=== PATIENT | male | born 1980 | race Caucasian/White ===

== ENCOUNTER 2022-05-27 11:28 | Emergency (ER) | payer OTHER, MEDICAID, SELFPAY ==
--- NOTE | ~2022-05-27 | CT_ITS ---
EXAMINATION: CT HEAD WITHOUT CONTRAST CLINICAL INFORMATION: Trauma. Headache. Large weight fell on him. COMPARISON: None TECHNIQUE: Contiguous axial imaging was performed from the skull base to vertex without intravenous administration of contrast. This CT examination was performed using dose optimization techniques as appropriate, variously including the following: *Automated exposure control *Adjustment of mA and/or kV according to patient size (this includes techniques or standardized protocols for targeted exams where dose is matched to indication/reason for exam; i.e. extremities or head) *Use of iterative reconstruction technique DLP: 7-8 mGy-cm FINDINGS: There is no evidence of an extra-axial collection. There is no evidence of intra-axial or extra-axial hemorrhage. The ventricles and extra-axial CSF spaces are appropriate. Neal-white matter differentiation is normal. No mass, mass effect or infarct is seen. No skull fracture is seen. There are bilateral nasal bone fractures. Visualized paranasal sinuses, mastoid air cells and middle ears are clear. CT/CT head/brain wo IV con IMPRESSION: No acute intracranial findings. Bilateral nasal bone fractures.
--- NOTE | ~2022-05-27 | CT_ITS ---
EXAMINATION: CT CHEST WITHOUT CONTRAST CLINICAL INFORMATION: Trauma. Large weight fell on him COMPARISON: None TECHNIQUE: Multidetector volumetric CT imaging of the chest was done. Axial MIP volume rendering provided. Sagittal and coronal reformatted images were obtained. This CT examination was performed using dose optimization techniques as appropriate, variously including the following: *Automated exposure control *Adjustment of mA and/or kV according to patient size (this includes techniques or standardized protocols for targeted exams where dose is matched to indication/reason for exam; i.e. extremities or head) *Use of iterative reconstruction technique DLP: 396 mGy-cm FINDINGS: MOTHER BABY RN: Unremarkable LUNGS: The lungs are clear with no evidence of inflammation or nodules. MEDIASTINUM: The mediastinum is normal. CORONARY ARTERY CALCIFICATION: None visualized on this study. PLEURA: There is no pleural effusion. No pleural mass or thickening. AXILLA: No lymphadenopathy. UPPER ABDOMEN: Unremarkable. OSSEOUS STRUCTURES: There are degenerative changes of the spine. No fracture or dislocation. CT/CT chest wo IV con IMPRESSION: Unremarkable examination. Fleischner guidelines were followed.
--- NOTE | ~2022-05-27 | CT_ITS ---
EXAMINATION: CT ABDOMEN AND PELVIS WITHOUT CONTRAST CLINICAL INFORMATION: Direct trauma to the abdomen. COMPARISON: None TECHNIQUE: Multidetector volumetric imaging was performed from the superior aspect of the liver through the pubic symphysis. Sagittal and coronal reformatted images were obtained on the technologist's workstation. This CT examination was performed using dose optimization techniques as appropriate, variously including the following: *Automated exposure control *Adjustment of mA and/or kV according to patient size (this includes techniques or standardized protocols for targeted exams where dose is matched to indication/reason for exam; i.e. extremities or head) *Use of iterative reconstruction technique DLP: 742 mGy-cm FINDINGS: LUNG BASES: The visualized lung bases are unremarkable. LIVER, GALLBLADDER, AND BILIARY TREE: The liver is normal in size, shape, and attenuation. No focal hepatic lesion or biliary ductal dilatation is present. The gallbladder is unremarkable with no evidence of radiopaque gallstones, gallbladder wall thickening, or obvious pericholecystic inflammatory changes. PANCREAS: Unremarkable. SPLEEN: Unremarkable. ADRENAL GLANDS: Unremarkable. KIDNEYS AND URETERS: The kidneys are normal in size, shape, and attenuation. No hydronephrosis, hydroureter, or calculi seen. No perinephric stranding. BLADDER: Unremarkable. GASTROINTESTINAL TRACT: The small and large bowel are unremarkable. The appendix is unremarkable. ABDOMINAL WALL: No significant hernia is appreciated. LYMPH NODES: Normal. VASCULAR: Minor atherosclerotic change in the aorta. No aneurysm. No periaortic collection. PELVIC VISCERA: Seminal vesicles and prostate normal. OSSEOUS STRUCTURES: Minor degenerative change in the lower thoracic spine. There is a moderate disc protrusion noted at L5-S1. CT/CT abdomen pelvis wo IV con IMPRESSION: No acute findings. Fleischner guidelines were followed.
--- NOTE | ~2022-05-27 | CT_ITS ---
EXAMINATION: CT CERVICAL SPINE WITHOUT CONTRAST CLINICAL INFORMATION: Pain after direct trauma COMPARISON: None TECHNIQUE: Axial helical scans with sagittal and coronal reformats obtained. This CT examination was performed using dose optimization techniques as appropriate, variously including the following: *Automated exposure control *Adjustment of mA and/or kV according to patient size (this includes techniques or standardized protocols for targeted exams where dose is matched to indication/reason for exam; i.e. extremities or head) *Use of iterative reconstruction technique DLP: 379 mGy-cm FINDINGS: No fracture or destructive process or alignment abnormality. There appears to be disc protrusions, at C5-C6 and C6-C7 without significant encroachment on the spinal canal. Prevertebral soft tissues normal. CT/CT cervical spine wo IV con IMPRESSION: No acute findings.
[2022-05-27 11:32] VITALS: BP 136/84; PULSE 72; RESP 18; TEMP 36; O2SAT 98; BMI 29.5
[2022-05-27 11:54] LABS: MANUAL DIFF FLAG NO
[2022-05-27 11:56] LABS: Basophils Percent Auto 0.7 % (0-2); Eosinophils Absolute Auto 0.3 X10*3/uL (0.0-0.4); Eosinophils Percent Auto 4.6 % (0-4); Hematocrit 49.5 % (42.0-52.0); Hemoglobin 17.3 g/dl (14.0-18.0); Imm Gran Abs Auto 0.01 X10*3/uL (0.00-0.03); Imm Gran Pct Auto 0.2 % (0.0-0.4); Lymphocytes Absolute Auto 1.7 X10*3/uL (1.2-4.9); Lymphocytes Percent Auto 27.2 % (20-40); Mean Corpuscular HGB Conc 34.9 g/dl (31.0-36.0); Mean Corpuscular Hemoglobin 31.2 pg (27.0-33.0); Mean Corpuscular Volume 89.4 fL (80.0-98.0); Mean Platelet Volume 10.5 fL (9.4-12.4); Monocytes Absolute Auto 0.7 X10*3/uL (0.1-1.2); Monocytes Percent Auto 11.1 % (2-11); Neutrophils Absolute Auto 3.4 x10*3/uL (2.0-8.3); Neutrophils Percent Auto 56.2 % (45-73); Platelet Count 254 X10*3/uL (160-400); Red Blood Count 5.54 X10*6/uL (4.60-5.80); Red Cell Distribution Width 12.2 % (11.0-16.0); White Blood Count 6.1 X10*3/uL (4.8-10.8)
[2022-05-27 12:10] LABS: Alanine Aminotransferase 40 U/L (0-40); Albumin Level 4.9 g/dL (3.5-5.0); Alkaline Phosphatase 92 U/L (39-117); Anion Gap 15 (12-20); Aspartate Amino Transferase 26 U/L (5-37); Bilirubin Total 1.5 mg/dL (0.0-1.0); Blood Urea Nitrogen 12 mg/dL (9-16); Calcium 9.8 mg/dL (8.4-10.2); Carbon Dioxide 25 mmol/L (22-29); Chloride 102 mmol/L (96-108); Creatinine Clr Calc Pharmacy 113.8; Estimated Glomerular Filt Rate > 60; Glucose Random 117 mg/dL (60-115); Magnesium 1.8 mg/dL (1.6-2.6); Potassium 4.8 mmol/L (3.3-5.1); Sodium 137 mmol/L (135-145); Total Protein 7.7 g/dL (6.5-8.0)
--- NOTE | 2022-05-27 12:12 | PC.NURSE ---
positive pedal pulses and radial pulses.
[2022-05-27 12:14] VITALS: BP 127/95; PULSE 58; RESP 16; O2SAT 100
--- NOTE | 2022-05-27 12:18 | ED.GENADULT ---
HPI - General Adult General Chief complaint: Trauma Stated complaint: 2400 lbs fell on back at work Time Seen by Provider: 05/27/22 11:39 Source: patient Mode of arrival: ambulatory Limitations: no limitations History of Present Illness HPI narrative: 42 yold male presents to the ED for 2400lb of paper fell on him at work. patient did not have hard helmet on. patient states he was working under a large bag of paper and it opened and fell on his back. Patient denies any loss of consciousness. Patient states main complaint is upper back and neck pain. Related Data Previous Rx's Medication Instructions Recorded amoxicillin 875 mg-potassium 1 tab PO Q12H 10 days #20 tabs 05/27/22 clavulanate 125 mg tablet naproxen 500 mg tablet 500 mg PO BID PRN pain 10 days #20 05/27/22 tabs oxycodone 5 mg capsule 5 mg PO TID PRN pain 3 days #9 caps 05/27/22 Allergies Allergy/AdvReac Type Severity Reaction Status Date / Time No Known Allergies Allergy Verified 05/27/22 11:32 Review of Systems Review of Systems: neck and upper back pain Yes all other systems are reviewed and are negative [facility] Social History Social History Alcohol intake: never Patient Tobacco Use Status: Current everyday Tobacco user Use of substances other than those prescribed or required for medical reasons: No Advance Directives: Yes Advance Directives Information Provided: No Advance Directives on File: No Physical Exam ED Vital Signs: Vital Signs - 24 hr 05/27/22 11:32 05/27/22 12:14 05/27/22 14:03 Temperature 96.8 F Pulse Rate 72 58 62 Respiratory Rate 18 16 14 Blood Pressure 136/84 127/95 H 133/88 Pulse Oximetry 98 100 99 Oxygen Delivery Method Room Air Room Air Room Air BMI result Body Mass Index 29.5 Const General: cooperative, healthy appearing, comfortable, no acute distress, well developed, alert, awake and Physically active Orientation/consciousness: patient oriented x3 HENMT Head: Yes normal to inspection, Yes No palpable skull fracture present, Yes normocephalic, Yes atraumatic and No abrasion Eyes General: appearance normal, both eyes and all related structures Neck Neck: Yes normal visual inspection, Yes full ROM, Yes no lymphadenopathy, Yes no meningeal signs, Yes trachea midline, Yes supple, No anterior neck swelling and Yes tender (cervical spine tenderness) Chest Chest palpation & inspection: normal inspection of the chest and normal palpation of entire chest wall Resp Effort & Inspection: normal respiratory effort and able to speak in complete sentences Auscultation: clear to auscultation bilaterally Cardio Jugular venous distension: no JVD Heart sounds: S1 normal heart sound present and S2 normal heart sound present GI Inspection: Yes normal to inspection and No abdominal wall ecchymosis Palpation (GI): Soft to palpation, not firm, nontender, no guarding and not rigid General: No CVA tenderness and Yes no CVA tenderness Back/Spine/Pelvis Back: no CVA tenderness, No CVA tenderness and back tenderness (upper thoracic) Skin General skin exam: no rashes or lesions noted and elasticity normal Neuro General: patient oriented x3, gait normal, no meningeal signs and CN's II-XI intact bilaterally Cranial nerves: Yes CN's II-XII intact bilaterally Extrem General: Yes normal to inspection and Yes full ROM Psych Appearance: grossly normal, well kempt and not disheveled Course Course Course Narrative: Labs ordered. CT scan imaging was ordered by belinda Tamayo. Patient given morphine for pain. Reevaluation(s) Reevaluation #1: Images came back normal except bilateral nasal fracture. Negative for nasal septal hematoma. Patient will be discharged with antibiotics. Patient will follow-up with nasal specialist. Patient also to follow-up with worker's comp. Time: 15:08 Medical Decision Making [facility] Narrative Medical decision making narrative: bilateral nasal fractures Lab Data Result diagrams: 05/27/22 11:48 05/27/22 11:48 Labs: Lab Results 05/27/22 05/27/22 Range/Units 11:48 11:48 WBC 6.1 (4.8-10.8) X10*3/uL RBC 5.54 (4.60-5.80) X10*6/uL Hgb 17.3 (14.0-18.0) g/dl Hct 49.5 (42.0-52.0) % MCV 89.4 (80.0-98.0) fL MCH 31.2 (27.0-33.0) pg MCHC 34.9 (31.0-36.0) g/dl RDW 12.2 (11.0-16.0) % Plt Count 254 (160-400) X10*3/uL MPV 10.5 (9.4-12.4) fL Immature Gran % (Auto) 0.2 (0.0-0.4) % Neut % (Auto) 56.2 (45-73) % Lymph % (Auto) 27.2 (20-40) % [place] % (Auto) 11.1 H (2-11) % Eos % (Auto) 4.6 H (0-4) % Baso % (Auto) 0.7 (0-2) % Lymph # (Auto) 1.7 (1.2-4.9) X10*3/uL [place] # (Auto) 0.7 (0.1-1.2) X10*3/uL Eos # (Auto) 0.3 (0.0-0.4) X10*3/uL Baso # (Auto) 0.0 (0.0-0.2) X10*3/uL Abs Immat Gran (auto) 0.01 (0.00-0.03) X10*3/uL Absolute Neuts (auto) 3.4 (2.0-8.3) x10*3/uL Absolute Nucleated RBC 0.000 (0.0-0.012) X10*3/uL Nucleated RBC % (auto) 0.0 (0.0-0.2) /100WBC Sodium 137 (135-145) mmol/L Potassium 4.8 (3.3-5.1) mmol/L Chloride 102 (96-108) mmol/L Carbon Dioxide 25 (22-29) mmol/L Anion Gap 15 (12-20) BUN 12 (9-16) mg/dL Creatinine 1.00 (0.5-1.4) mg/dL Estim Creat Clear Calc 113.8 Estimated GFR > 60 Random Glucose 117 H (60-115) mg/dL Calcium 9.8 (8.4-10.2) mg/dL Magnesium 1.8 (1.6-2.6) mg/dL Total Bilirubin 1.5 H (0.0-1.0) mg/dL AST 26 (5-37) U/L ALT 40 (0-40) U/L Alkaline Phosphatase 92 (39-117) U/L Total Protein 7.7 (6.5-8.0) g/dL Albumin 4.9 (3.5-5.0) g/dL Discharge Plan Discharge Clinical Impression: Fractured nasal bones Patient Disposition: Home, Self-Care Instructions: Nasal Fracture (ED), Head Injury (ED) Additional Instructions: Your images came back positive for bilateral nasal fracture. You will be discharged with antibiotics. You need to follow-up with [facility] and also our HEENT specialist. Return to the ED immediately for any rectal bleeding, vomiting blood, blood in urine, chest pain, shortness of breath, abdominal pain, severe headache, weakness, altered mental status, or any other concerning symptoms. Prescriptions: New amoxicillin-pot clavulanate 875-125 mg tablet 1 tab PO Q12H 10 Days Qty: 20 0RF naproxen 500 mg tablet 500 mg PO BID PRN (Reason: pain) 10 Days Qty: 20 0RF oxycodone 5 mg capsule 5 mg PO TID PRN (Reason: pain) 3 Days Qty: 9 0RF Rx Instructions: Partial Fill upon patient request. Side effect is drowsiness. Do not take at work or while driving. Referrals: [facility] [Outside] (trauma at work. nasal fractures) [facility] Gabriel [Physician] - (Bilateral nasal fractures) Stand Alone Forms: Work/School Release Interventions: ED Discharge Assessment Last Done: 05/27/22 16:15 Discharge Date/Time: 05/27/22 16:16 Print Language: Japanese
[2022-05-27] MEDS: ondansetron HCL 4 MG/2 ML VIAL IVPUSH (12:51)
[2022-05-27] MEDS: Morphine Sulfate 4 MG/ML CARTRIDGE IVPUSH ×2 (12:51→14:04)
[2022-05-27] MEDS: 0.9 % Sodium Chloride 1,000 ML 999 ML IV (12:53)
[2022-05-27 14:03] VITALS: BP 133/88; PULSE 62; RESP 14; O2SAT 99
== END 2022-05-27 16:16 | disposition home or self-care (01) ==
PROVIDERS: Physician Assistant Medical; Emergency Provider Emergency Medicine
DX: S02.2XXA Fracture of nasal bones, initial encounter for closed fracture (principal); W20.8XXA Other cause of strike by thrown, projected or falling object, initial encounter; M54.2 Cervicalgia; M54.6 Pain in thoracic spine; Y93.89 Activity, other specified; Y92.59 Other trade areas as the place of occurrence of the external cause; Y99.0 Civilian activity done for income or pay
CPT/HCPCS: 36415; 70450; 71250; 72125; 74176; 80053; 83735; 85025; 96361; 96374; 96375; 96376; 99284; J2270; J2405

== ENCOUNTER → 2022-05-31 11:22 | Outpatient (BNVA) | payer OTHER, SELFPAY | PROVIDERS: Visit Provider Internal Medicine | DX: S02.2XXA Fracture of nasal bones, initial encounter for closed fracture (principal); W20.8XXA Other cause of strike by thrown, projected or falling object, initial encounter | CPT/HCPCS: 99203 ==

== ENCOUNTER → 2022-06-07 09:38 | Outpatient (BNVA) | payer OTHER, SELFPAY | PROVIDERS: Visit Provider Internal Medicine | DX: S16.1XXD Strain of muscle, fascia and tendon at neck level, subsequent encounter (principal); W20.8XXD Other cause of strike by thrown, projected or falling object, subsequent encounter; M54.50 Low back pain, unspecified | CPT/HCPCS: 99213 ==

== ENCOUNTER → 2022-06-14 09:50 | Outpatient (BNVA) | payer OTHER, SELFPAY | PROVIDERS: Visit Provider Internal Medicine | DX: S16.1XXD Strain of muscle, fascia and tendon at neck level, subsequent encounter (principal); W20.8XXD Other cause of strike by thrown, projected or falling object, subsequent encounter; M79.605 Pain in left leg; M79.604 Pain in right leg | CPT/HCPCS: 99213 ==

== ENCOUNTER → 2022-06-27 14:49 | Outpatient (BNVA) | payer OTHER, SELFPAY | PROVIDERS: Visit Provider Internal Medicine | DX: M51.27 Other intervertebral disc displacement, lumbosacral region (principal); M79.662 Pain in left lower leg; M79.661 Pain in right lower leg | CPT/HCPCS: 99213 ==

== ENCOUNTER 2022-07-08 19:14 | Outpatient (REF) | payer OTHER, SELFPAY ==
--- NOTE | ~2022-07-08 | MR_ITS ---
EXAMINATION: MR LUMBAR SPINE WITHOUT CONTRAST CLINICAL INFORMATION: Head injury. Pain in both lower extremities. COMPARISON: CT chest abdomen and pelvis 05/27/2022. TECHNIQUE: MRI of the lumbar spine was obtained using routine sequences without contrast. FINDINGS: Alignment is normal. Vertebral body heights are preserved. No acute bone marrow signal changes. There is disc desiccation at L5-S1 without substantial loss of intervertebral disc height. The tip of the conus medullaris is located at L1. No mass effect on the conus. Visualized distal cord signal intensity is normal. At L1-L2 the annular contour is normal. No canal or neuroforaminal compromise. At L2-L3 the annular contour is normal. No canal or neuroforaminal compromise. At L3-L4 the annular contour is normal. No canal or neuroforaminal compromise. At L4-L5 there is a slightly bulging disc. Bilateral facet degenerative change. No canal stenosis no mass effect on the traversing or foraminal nerve roots. At L5-S1 there is a shallow central protrusion. No canal stenosis. No mass effect on the traversing or foraminal nerve roots. Limited visualization of the retroperitoneal anatomy reveals no abnormal finding. Psoas and paraspinal muscle groups are symmetric. MR/MR lumbar spine wo con IMPRESSION: There is disc degeneration at the levels of L4-L5 and L5-S1. No canal stenosis. No mass effect on the traversing or foraminal nerve roots.
== END 2022-07-08 19:15 | disposition home or self-care (01) ==
LOC: HO.MRI 19:14
PROVIDERS: Visit Provider Internal Medicine
DX: S38.1XXD Crushing injury of abdomen, lower back, and pelvis, subsequent encounter (principal)
CPT/HCPCS: 72148

== ENCOUNTER → 2022-07-09 14:20 | Outpatient (BNVA) | payer OTHER, SELFPAY | PROVIDERS: Visit Provider Internal Medicine | DX: F51.5 Nightmare disorder (principal); R06.4 Hyperventilation; S02.2XXD Fracture of nasal bones, subsequent encounter for fracture with routine healing; W20.8XXD Other cause of strike by thrown, projected or falling object, subsequent encounter | CPT/HCPCS: 99214 ==

== ENCOUNTER → 2022-07-16 15:00 | Outpatient (BNVA) | payer OTHER, SELFPAY | PROVIDERS: Visit Provider Internal Medicine | DX: F51.5 Nightmare disorder (principal); R06.4 Hyperventilation; S02.2XXD Fracture of nasal bones, subsequent encounter for fracture with routine healing; W20.8XXD Other cause of strike by thrown, projected or falling object, subsequent encounter | CPT/HCPCS: 99213 ==

== ENCOUNTER → 2022-07-23 14:31 | Outpatient (BNVA) | payer OTHER, SELFPAY | PROVIDERS: Visit Provider Internal Medicine | DX: F51.5 Nightmare disorder (principal); M51.26 Other intervertebral disc displacement, lumbar region; M79.672 Pain in left foot; H53.8 Other visual disturbances | CPT/HCPCS: 99213 ==

== ENCOUNTER → 2022-08-05 15:09 | Outpatient (BNVA) | payer OTHER, SELFPAY | PROVIDERS: Visit Provider Internal Medicine | DX: R06.4 Hyperventilation (principal); F51.5 Nightmare disorder | CPT/HCPCS: 99213 ==

== ENCOUNTER → 2022-08-13 14:17 | Outpatient (BNVA) | payer OTHER, SELFPAY | PROVIDERS: Visit Provider Internal Medicine | DX: M51.26 Other intervertebral disc displacement, lumbar region (principal); F51.5 Nightmare disorder | CPT/HCPCS: 99213 ==

== ENCOUNTER → 2022-09-09 14:50 | Outpatient (BNVA) | payer OTHER, SELFPAY | PROVIDERS: Visit Provider Internal Medicine | DX: S33.101 Dislocation of unspecified lumbar vertebra (principal); F43.10 Post-traumatic stress disorder, unspecified; X58.XXXD Exposure to other specified factors, subsequent encounter; G47.30 Sleep apnea, unspecified; F51.5 Nightmare disorder | CPT/HCPCS: 99213 ==

== ENCOUNTER → 2022-09-23 15:09 | Outpatient (BNVA) | payer OTHER, SELFPAY | PROVIDERS: Visit Provider Internal Medicine | DX: F43.10 Post-traumatic stress disorder, unspecified (principal); F51.5 Nightmare disorder; G47.09 Other insomnia | CPT/HCPCS: 99213 ==

== ENCOUNTER → 2022-09-30 14:59 | Outpatient (BNVA) | payer OTHER, SELFPAY | PROVIDERS: Visit Provider Internal Medicine | DX: R73.9 Hyperglycemia, unspecified (principal); Z79.52 Long term (current) use of systemic steroids; F43.0 Acute stress reaction; F43.10 Post-traumatic stress disorder, unspecified | CPT/HCPCS: 99214 ==

== ENCOUNTER → 2022-10-07 14:58 | Outpatient (BNVA) | payer OTHER, SELFPAY | PROVIDERS: Visit Provider Internal Medicine | DX: M51.27 Other intervertebral disc displacement, lumbosacral region (principal); F43.12 Post-traumatic stress disorder, chronic | CPT/HCPCS: 99213 ==

== ENCOUNTER → 2022-10-22 14:52 | Outpatient (BNVA) | payer OTHER, SELFPAY | PROVIDERS: Visit Provider Internal Medicine | DX: F43.12 Post-traumatic stress disorder, chronic (principal); M51.16 Intervertebral disc disorders with radiculopathy, lumbar region; R20.2 Paresthesia of skin | CPT/HCPCS: 99213 ==

== ENCOUNTER → 2022-11-05 12:53 | Outpatient (BNVA) | payer OTHER, SELFPAY | PROVIDERS: Visit Provider Internal Medicine | DX: E11.9 Type 2 diabetes mellitus without complications (principal); F43.10 Post-traumatic stress disorder, unspecified; M51.26 Other intervertebral disc displacement, lumbar region | CPT/HCPCS: 99213 ==

== ENCOUNTER 2022-11-06 17:00 | Outpatient (RCR) | payer OTHER, SELFPAY ==
--- NOTE | 2022-06-14 13:12 | MHC.PT.EP ---
[facility] [place] Office [place] Office [place] Office [address] [phone] F: [phone] F: [phone] F: [phone] F: [phone] Physical Therapy Plan of Care Date of Evaluation: Date of Surgery: N/A Diagnosis: crush injury of neck and back cervical pain, back pain radiating into L LE Assessment: Pt is a 42yo M who reports he was crushed by 2,375 pounds while at work on 05/27/22. Pt presents to PT with acute pain in his neck, upper back, mid back, and low back radiating into LLE. He had CT of abdomen/pelvis, head, and neck which revealed B nasal fractures. He presents to PT with current impairments in pain, decreased cervical ROM, decreased shoulder ROM B, decreased hip ROM B, soft tissue restrictions, impaired posture, and impaired gait. He is limited functionally by prolonged sitting, prolonged standing, walking, stair navigation, bending, and sleeping. He is a good candidate for skilled PT in order to address current impairments to facilitate return to PLOF. He is recommended to be seen 2x/week for 5 weeks and will be reassesed at that time. Frequency and Duration: The patient will be seen 2x/week for 5 weeks Short Term Goals: Pt will be I with HEP to promote self management of symptoms Pt will demonstrate improvements in cervical flexion and extension of at least 10 deg ea [employer] Goals: Pt will tolerate standing and walking > 30 min on even and uneven surfaces with pain less than 4/10 Pt will demonstrate full ROM all planes of cervical spine to assist with ADLs and driving Pt will demonstrate improvements in function as evidenced by statistically significant improvement in Neck Pain Disability Index Questionnaire Treatment Plan: Modalities to reduce pain, spasms and effusion. Manual therapy to restore motion and function. Therapeutic exercise to improve strength and flexibility. Neuromuscular re-education for posture and balance. Therapeutic activities to return to functional activities of daily living. Electronically signed by: Justyna Zhou, PT, DPT Please sign and return to therapist. Thank you for your referral.
--- NOTE | 2022-11-08 11:08 | MHC.PT.DC ---
[facility] [place] Office [place] Office [place] Office [address] Alfredo [address] [phone] F: [phone] F: [phone] F: [phone] F: [phone] Physical Therapy Discharge Report Diagnosis: crush injury of neck and back cervical pain, back pain radiating into L LE, L5/S1 disc herniation Date of Surgery: N/A Date of Evaluation: 06/13/22 Date of Discharge: 11/08/22 Treatments to Date: 25 Cancellations to Date: No Shows to Date: Discharge Status: Independent with HEP Recommend MD Follow-up Discharge Summary: Pt was seen for skilled PT from 06/13/22-11/06/22. He made improvements with neck pain but continues to have low back pain and limitations. Throughout PT POC we trialed stretching, strengthening, E-stim, manual therapy, extension based exercises and traction to address pts symptoms. Pt continues to have intermittent radicular symptoms and at this time he has reached a functional plateau with skilled PT. He is I with HEP and is able to perform exercises with proper mechanics. He was provided printed, updated copy of HEP at last attended PT session. I recommend he continue to perform HEP consistently and follow up with MD regarding persistent symptoms. Pt is being D/C from skilled PT at this time. Electronically signed by: Justyna Zhou, PT, DPT Please sign and return to therapist. Thank you for your referral.
== END 2022-11-08 11:09 | disposition home or self-care (01) ==
LOC: HO.PT 17:00
PROVIDERS: Visit Provider Internal Medicine
DX: M54.2 Cervicalgia (principal); M54.50 Low back pain, unspecified
CPT/HCPCS: 97012; 97014; 97110; 97140; 97163; 97530

== ENCOUNTER → 2022-12-03 15:28 | Outpatient (BNVA) | payer OTHER, SELFPAY | PROVIDERS: Visit Provider Internal Medicine | DX: S06.2X0D Diffuse traumatic brain injury without loss of consciousness, subsequent encounter (principal); W20.8XXD Other cause of strike by thrown, projected or falling object, subsequent encounter; M51.26 Other intervertebral disc displacement, lumbar region; E09.9 Drug or chemical induced diabetes mellitus without complications; T38.0X5D Adverse effect of glucocorticoids and synthetic analogues, subsequent encounter | CPT/HCPCS: 99213 ==

== ENCOUNTER → 2022-12-31 14:50 | Outpatient (BNVA) | payer OTHER, SELFPAY | PROVIDERS: Visit Provider Internal Medicine | DX: S06.0X0D Concussion without loss of consciousness, subsequent encounter (principal); W20.8XXD Other cause of strike by thrown, projected or falling object, subsequent encounter; M51.26 Other intervertebral disc displacement, lumbar region; E09.9 Drug or chemical induced diabetes mellitus without complications; T38.0X5A Adverse effect of glucocorticoids and synthetic analogues, initial encounter | CPT/HCPCS: 99213 ==

== ENCOUNTER → 2023-01-28 15:17 | Outpatient (BNVA) | payer OTHER, SELFPAY | PROVIDERS: Visit Provider Internal Medicine | DX: F43.10 Post-traumatic stress disorder, unspecified (principal); M51.26 Other intervertebral disc displacement, lumbar region; G44.309 Post-traumatic headache, unspecified, not intractable; F07.81 Postconcussional syndrome | CPT/HCPCS: 99213 ==

== ENCOUNTER → 2023-02-25 15:00 | Outpatient (BNVA) | payer OTHER, SELFPAY | PROVIDERS: Visit Provider Internal Medicine | DX: F43.10 Post-traumatic stress disorder, unspecified (principal); M51.27 Other intervertebral disc displacement, lumbosacral region; E11.9 Type 2 diabetes mellitus without complications | CPT/HCPCS: 99213 ==

== ENCOUNTER → 2023-03-20 09:26 | Outpatient (BNVA) | payer OTHER, SELFPAY | PROVIDERS: Visit Provider Psychiatry & Neurology Neurology | DX: G47.10 Hypersomnia, unspecified (principal); R06.83 Snoring; F07.81 Postconcussional syndrome; G44.309 Post-traumatic headache, unspecified, not intractable | CPT/HCPCS: 99202 ==

== ENCOUNTER 2023-03-20 09:27 | Outpatient (AMB) | payer OTHER, SELFPAY ==
--- NOTE | 2023-03-20 09:30 | A.OFFVIS_ITS ---
Intake Vital Signs 03/20/23 09:31 Height 5 ft 11 in Weight 222 lb 8 oz BMI 31.0 BP 110/78 Blood Pressure Location Rt brachial Position Sitting Pulse 76 Pulse Source Pulse Oximeter Pulse Oximetry (%) 96 Oxygen Delivery Method Room Air Intake Visit Reasons: [id number] Intake Note: Patient presents for new evaluation of TBI Allergies No Known Allergies Allergy (Verified 03/20/23 09:34) Medication List - Last Reconciled 03/20/23 by Luda Figueroa MD metformin 500 mg PO DAILY omeprazole magnesium (Prilosec OTC) 20 mg PO DAILY paroxetine HCl (Paxil) 20 mg PO DAILY HPI HPI Comments History of Present Illness Details 43y/o right handed male comes for neurological evaluation following a head injury. On May 17 2022 he was working on a [employer] hopper-weighed 2375lbs which fell on him . He was knocked out , did not lose consciousness.It took him 25 minutes before someone found him. He was taken to [facility]. His CT brain was negative , nasal fracture, back and neck injury. He was reffered to pt. He also developed anxiety, PTSD etc and is on therapy. He has chronic pounding headaches since then, worsened anxiety, poor memory,dizziness, back pain, neck pain etc. Headaches are retroorbital, frontal, bitemporal, neck pain.He has photophobia, phonophobia , nausea .He takes tylenol - 2 per day . His sleep is poor, has nightmares,wakes up gasping for breath etc. He sees a counselor - has complex PTSD . H ehad work injury at age 14. He also has loud snoring and has excessive daytime ftaigue [facility] Medical History (Updated 03/20/23 @ 10:10 by Luda Figueroa MD) Diabetes Head injury Hypersomnia Post-concussion headache Snoring Surgical History H/O hand surgery Hx of shoulder surgery Family History Father Kidney carcinoma Mother Breast cancer Social History Alcohol intake: never Patient Tobacco Use Status: Current everyday Tobacco user Review of Systems Const Reports daytime sleepiness, Reports difficulty sleeping, Reports excessive sweating, Reports headache(s), Reports lethargy, Reports malaise, Reports snoring and Reports stops breathing during sleep Eyes Reports blurry vision and Reports change in vision ENT Reports headache(s) and Reports neck pain Resp Reports snoring Musc Reports back pain and Reports neck pain Neuro Reports headache(s) and Reports memory loss Psych Reports anxiety, Reports depression and Reports memory loss Endo Reports excessive sweating Physical Exam Vital Signs: Last Vital Signs Pulse 76 03/20/23 09:31 BP 110/78 03/20/23 09:31 Pulse Ox 96 03/20/23 09:31 Oxygen Delivery Method Room Air 03/20/23 09:31 BMI result Body Mass Index 31.0 Const General: cooperative, healthy appearing, comfortable and anxious Nutritional Appearance: average body habitus Orientation/consciousness: patient oriented x3 Eyes Pupils: Equal, round and reactive pupils present Neuro General: patient oriented x3, gait normal, tone normal, moves all extremities and no focal motor deficits Cranial nerves: Yes Facial sensation intact/muscles of mastication intact, Yes Equal, round and reactive pupils present, Yes Bilaterally intact EOM present, Yes Nystagmus not present, Yes Normal facial strength present, Yes Midline tongue present and Yes Symmetric palate elevation present Cognition (Neuro): normal cognition Gait exam (Neuro): Normal gait present Motor exam (neuro): 5/5 motor strength present throughout, no tremor noted and Normal motor muscle tone present throughout Deep tendon reflexes (DTR's): Right triceps reflex intensity grade: 2+, Left triceps reflex intensity grade: 2+, Rt Biceps (C5, C6): 2+, Left biceps reflex intensity grade: 2+, Right brachioradialis reflex intensity grade: 2+, Left brachioradialis reflex intensity grade: 2+, Right patellar reflex intensity grade: 2+ and Left patellar reflex intensity grade: 2+ Coordination: [id number] test normal Assessment & Plan Assessment & Plan (1) Post-concussion headache: Code(s): G44.309 - Post-traumatic headache, unspecified, not intractable (2) Snoring: Code(s): R06.83 - Snoring (3) Hypersomnia: Code(s): G47.10 - Hypersomnia, unspecified Plan I will trial him on Amitriptyline 25mg qhs , magnesium 400mg qhs and Vit B 2 400mg qam for headache prophylaxis Sleep study to r/o sleep apnea PT for back F/u therapist for PTSD Headache diary Orders: Orders RT home sleep study Today G47.10 - Hypersomnia, unspecified, R06.83 - Snoring Medications: New amitriptyline 25 mg PO BEDTIME 30 tabs 3RF magnesium oxide 400 mg PO BEDTIME 30 caps 6RF riboflavin (vitamin B2) 400 mg PO DAILY 30 tabs 6RF Coding Level of Care Code New Pt Level 4 (00353) Diagnoses Post-concussion headache G44.309 Snoring R06.83 Hypersomnia G47.10
[2023-03-20 09:31] VITALS: BP 110/78; PULSE 76; O2SAT 96; BMI 31.0
== END 2023-03-20 10:06 | disposition home or self-care (01) ==
PROVIDERS: Visit Provider Psychiatry & Neurology Neurology
DX: G44.309 Post-traumatic headache, unspecified, not intractable (principal); R06.83 Snoring; G47.10 Hypersomnia, unspecified
CPT/HCPCS: 99204

== ENCOUNTER → 2023-04-17 13:03 | Outpatient (BNVA) | payer OTHER, SELFPAY | PROVIDERS: Visit Provider Internal Medicine | DX: F07.81 Postconcussional syndrome (principal); F43.10 Post-traumatic stress disorder, unspecified; S33.101 Dislocation of unspecified lumbar vertebra; W20.8XXD Other cause of strike by thrown, projected or falling object, subsequent encounter; G47.9 Sleep disorder, unspecified | CPT/HCPCS: 99214 ==

== ENCOUNTER → 2023-05-01 15:48 | Outpatient (REF) | payer OTHER, SELFPAY | LOC: HO.SL 15:48 | PROVIDERS: Visit Provider Psychiatry & Neurology Neurology | DX: G47.10 Hypersomnia, unspecified (principal); R06.83 Snoring | CPT/HCPCS: 95806 ==

== ENCOUNTER → 2023-05-01 16:00 | Outpatient (BNV) | payer SELFPAY | PROVIDERS: Visit Provider Psychiatry & Neurology Neurology | DX: R06.83 Snoring (principal) | CPT/HCPCS: 95806 ==